=== PATIENT | male | born 1960 | race Caucasian/White ===

== ENCOUNTER 2020-10-08 16:11 | Observation (INO) ==
[2020-10-08] MEDS ORDERED: ASPIRIN CHEW 324 MG PO STA (16:19)
--- NOTE | 2020-10-08 16:30 | Emergency Department Note ---
History of Present Illness General Chief Complaint: Cardiac Assessment Stated Complaint: REFERREDBY DOCTOR, HEART/CHEST PAIN Time Seen by Provider: 10/08/20 16:18 History of Present Illness Provider Complaint: shortness of breath Onset (ago): week(s) (1) Severity: moderate Maximum Pain Intensity: 0 Relieved By: + nothing Exacerbated By: + nothing Context: no recent illness, no recent travel or no trauma/injury Associated symptoms: no chest pain, no pain with inspiration, no fever, no cough, no wheezing, no sputum production, no orthopnea, no polydipsia, no paresthesias, no diaphoresis, no nausea/vomiting, no abdominal pain, no sense of impending doom, no chest congestion or no lightheadedness HPI Narrative: Patient sent in by cardiology Dr. Urbina. Patient was sent in for possible CHF exacerbation reporting that he has a low ejection fraction. Patient was recently in the hospital in [place] and left AMA. Patient denies any recent travel or hemoptysis. Home Medications Medication Instructions Recorded Confirmed Type atorvastatin 40 mg tablet 40 mg PO QPM 10/08/20 10/08/20 History carvedilol 6.25 mg tablet 6.25 mg PO BID 10/08/20 10/08/20 History cyclobenzaprine 10 mg tablet 10 mg PO TID PRN 10/08/20 10/08/20 History gabapentin 400 mg capsule 400 mg PO Q6 10/08/20 10/08/20 History hydroxyzine pamoate 25 mg capsule 25 mg PO TID PRN 10/08/20 10/08/20 History lisinopril 20 mg tablet 20 mg PO QAM 10/08/20 10/08/20 History metformin 500 mg tablet,extended 500 mg PO QAM 10/08/20 10/08/20 History release 24 hr nifedipine 60 mg tablet,extended 60 mg PO QAM 10/08/20 10/08/20 History release omeprazole 40 mg capsule,delayed 40 mg PO QAM 10/08/20 10/08/20 History release Allergies Allergy/AdvReac Type Severity Reaction Status Date / Time No Known Allergies Allergy Unverified 10/08/20 17:52 Past Med/Surg History Medical History (Updated 10/08/20 @ 21:23 by Ronan Campbell) Anxiety COPD (chronic obstructive pulmonary disease) Diabetes Frequent PVCs GERD (gastroesophageal reflux disease) HLD (hyperlipidemia) HTN (hypertension) Left ventricular systolic dysfunction Muscle spasm No pertinent family history Peripheral neuropathy Tobacco abuse Unstable angina Surgical History (Updated 10/08/20 @ 16:28 by Ronan Campbell) No pertinent past surgical history Social History Smoking Status: Current every day smoker Hx Alcohol Use: No Hx Substance Use: Yes Last Used Substance: Days (ago) Preferred Language: Nepalese Communication Ability: Effective Tax Expert Required: No Beliefs That Will Affect Care: None Current Living Situation: Alone Feels Safe at Home: Yes Assistive Devices: Glasses Review of Systems A total of 10 systems reviewed and were otherwise negative Physical Exam Vital Signs: Vital Signs - 24 hr 10/08/20 16:13 10/08/20 17:14 10/08/20 17:31 Temperature 36.6 C Temperature Source Temporal Artery Sc an Pulse Rate 71 71 Pulse Rate [Left F pio] 97 H Pulse Rhythm Regular Regular Pulse Rhythm [Left Finger] Regular Pulse Strength Normal Pulse Strength [Le ft Finger] Normal Respiratory Rate 16 18 20 Respiratory Effort / Characteristics Non-Labored Non-Labored Sponta neous Respiratory Depth Normal Normal Respiratory Patter n Regular Regular Blood Pressure 137/80 Blood Pressure [Ri ght Arm] 165/103 H Blood Pressure Renetta n 99 Blood Pressure Renetta n [Right Arm] 123 Blood Pressure Pos ition Sitting Blood Pressure Pos ition [Right Arm] Sitting Pulse Oximetry 97 96 97 Oxygen Delivery Me thod Room Air Room Air Room Air Sepsis Recent Feve r Within 48 Hours No Sepsis New/Unexpla ined Change in Men araseli Status N/A Sepsis Action Take n by Nursing No Action Required 10/08/20 17:46 10/08/20 18:30 10/08/20 19:12 Temperature Temperature Source Pulse Rate Pulse Rate [Left F pio] 75 69 65 Pulse Rhythm Pulse Rhythm [Left Finger] Regular Regular Pulse Strength Pulse Strength [Le ft Finger] Normal Normal Respiratory Rate 20 20 18 Respiratory Effort / Characteristics Non-Labored Sponta neous Non-Labored Sponta neous Respiratory Depth Normal Normal Respiratory Patter n Regular Regular Blood Pressure Blood Pressure [Ri ght Arm] 132/98 134/76 139/75 Blood Pressure Renetta n Blood Pressure Renetta n [Right Arm] 109 95 96 Blood Pressure Pos ition Blood Pressure Pos ition [Right Arm] Sitting Sitting Pulse Oximetry 98 98 98 Oxygen Delivery Me thod Room Air Room Air Room Air Sepsis Recent Feve r Within 48 Hours Sepsis New/Unexpla ined Change in Men araseli Status Sepsis Action Take n by Nursing Physical Exam: Physical Exam GENERAL: He is oriented to person, place, and time. He appears well-developed and well-nourished. He does not appear distressed. HENT: Exam performed. - Head: Normocephalic and atraumatic. - Right Ear: External ear normal. No mastoid tenderness. - Left Ear: External ear normal. No mastoid tenderness. - Mouth/Throat: The oropharynx is clear and moist. No trismus in the jaw. No dental abscesses or uvula swelling. No oropharyngeal exudate or tonsillar abscesses. EYES: Conjunctivae and EOM are normal. Pupils are equal, round, and reactive to light. Right eye exhibits no discharge. Left eye exhibits no discharge. No scleral icterus. NECK: Normal range of motion. Neck supple. No JVD present. No spinous process tenderness present. No carotid bruit present. No rigidity. No tracheal deviation and normal range of motion present. No Brudzinski's sign and no Kernig's sign noted. CV: Normal rate, regular rhythm, normal heart sounds and intact distal pulses. Palpable radial pulses bue. PULM/CHEST: Effort normal and breath sounds normal. No respiratory distress. No stridor. He has no wheezes. He has no rales. - Chest Wall: He exhibits no tenderness. ABD: The abdomen is soft and obese. Bowel sounds are normal. He has no distension. No mass is present. There is no tenderness. There is no rebound, no guarding, no Barrios's sign and no tenderness at McBurney's point. Rovsig negative. MUSC/SKEL: Normal range of motion. There is 1+ pitting edema of the bilateral lower extremities. No tenderness or deformity. LYMPH: No cervical adenopathy. NEURO: He is alert and oriented to person, place, and time. He has normal strength. No cranial nerve deficit or sensory deficit. Coordination and gait normal. GCS eye subscore is 4. GCS verbal subscore is 5. GCS motor subscore is 6. Cerebellar tests wnl. SKIN: Skin is warm and dry. He is not diaphoretic. PSYCH: He has a normal mood and affect. Behavior is normal. Judgment and thought content normal. Course Course 161: The patient was evaluated in room B11. A complete history and physical exam was performed Cardiac monitoring: An order was placed for continuous cardiac monitoring. The monitor shows a rate of 70 with sinus rhythm 1800: Vital signs stable. Labs and imaging within normal limits. [facility] Spoke with Brandi who stated to admit to Dr. Glover. 1915: Case management is now stating that the patient go to [facility]. Discussed case with Dr. Green who will admit the patient to his service. Administered Medications Discontinued Medications Aspirin (Aspirin Chew 324 Mg) 324 mg PO NOW STA Stop: 10/08/20 16:20 Last Admin: 10/08/20 16:44 Dose: 324 mg Documented by: [id number] Hydroxyzine HCl (Hydroxyzine Hcl 25 Mg Tab) 25 mg PO NOW STA Stop: 10/08/20 18:20 Last Admin: 10/08/20 18:29 Dose: 25 mg Documented by: [id number] Medical Decision Making Laboratory Data Result diagrams: 10/08/20 17:05 10/08/20 17:05 Lab Results 10/08/20 10/08/20 10/08/20 Range/Units 17:05 17:05 17:09 WBC 10.59 (4.8-10.8) K/uL RBC 5.55 (4.7-6.1) M/uL Hgb 16.1 (14.0-18.0) g/dL Hct 45.3 (42-52) % MCV 81.6 (80-100) fL MCH 29.0 (25-34) pg MCHC 35.5 (32-36) g/dL RDW Std Deviation 37.6 (36.4-46.3) fL RDW Coeff of Nicky 12.6 (11.5-14.5) % Plt Count 275 (130-400) K/uL MPV 10.0 (7.4-10.4) fL Immature Gran % (Auto) 0.2 % Neut % (Auto) 52.6 % Lymph % (Auto) 37.7 % [place] % (Auto) 7.3 % Eos % (Auto) 1.9 % Baso % (Auto) 0.3 % Neut # (Auto) 5.58 (1.4-6.5) K/uL Lymph # (Auto) 3.99 H (1.2-3.4) K/uL [place] # (Auto) 0.77 H (0.11-0.59) K/uL Eos # (Auto) 0.20 (0-0.5) K/uL Baso # (Auto) 0.03 (0-0.2) K/uL Immature Gran # (Auto) 0.02 (0.00-0.02) K/uL Sodium 135 L (136-145) mmol/L Potassium 4.5 (3.5-5.1) mmol/L Chloride 106 (98-107) mmol/L Carbon Dioxide 23 (21-32) mmol/L Anion Gap 7.0 (3-11) BUN 35 H (7-18) mg/dl Creatinine 1.21 (0.6-1.4) mg/dl Est Cr Clr Drug Dosing 89.8 ml/min Est GFR ( Amer) 76.0 ml/min Est GFR (Non-Af Amer) 65.6 ml/min BUN/Creatinine Ratio 28.7 H (10-20) Glucose 108 H (70-99) mg/dl Calcium 9.2 (8.5-10.1) mg/dl Troponin I < 0.015 (0-0.045) ng/ml NT-Pro-B Natriuret Pep 159 (0-900) pg/ml Lipase 126 (73-393) U/L COVID-19 Eval Order Covid19 at [facility] SARS-CoV-2 (PCR) (Negative) 10/08/20 Range/Units 17:09 WBC (4.8-10.8) K/uL RBC (4.7-6.1) M/uL Hgb (14.0-18.0) g/dL Hct (42-52) % MCV (80-100) fL MCH (25-34) pg MCHC (32-36) g/dL RDW Std Deviation (36.4-46.3) fL RDW Coeff of Nicky (11.5-14.5) % Plt Count (130-400) K/uL MPV (7.4-10.4) fL Immature Gran % (Auto) % Neut % (Auto) % Lymph % (Auto) % [place] % (Auto) % Eos % (Auto) % Baso % (Auto) % Neut # (Auto) (1.4-6.5) K/uL Lymph # (Auto) (1.2-3.4) K/uL [place] # (Auto) (0.11-0.59) K/uL Eos # (Auto) (0-0.5) K/uL Baso # (Auto) (0-0.2) K/uL Immature Gran # (Auto) (0.00-0.02) K/uL Sodium (136-145) mmol/L Potassium (3.5-5.1) mmol/L Chloride (98-107) mmol/L Carbon Dioxide (21-32) mmol/L Anion Gap (3-11) BUN (7-18) mg/dl Creatinine (0.6-1.4) mg/dl Est Cr Clr Drug Dosing ml/min Est GFR ( Amer) ml/min Est GFR (Non-Af Amer) ml/min BUN/Creatinine Ratio (10-20) Glucose (70-99) mg/dl Calcium (8.5-10.1) mg/dl Troponin I (0-0.045) ng/ml NT-Pro-B Natriuret Pep (0-900) pg/ml Lipase (73-393) U/L COVID-19 Eval Order SARS-CoV-2 (PCR) NEGATIVE (Negative) Imaging Data Radiologist's Impression: Chest X-Ray 10/08/20 16:19 XR chest 1V portable HISTORY: Atypical Chest Pain COMPARISON: None. FINDINGS: No focal lung consolidations to suggest pneumonia. No evidence for pulmonary edema. The cardiac silhouette is top normal in size. No pleural fusions. No pneumothorax. IMPRESSION: No acute process. ACT 112: Negative or not required by law. Electronically signed by: Jefferson Quinn M.D. 10/08/2020 5:24 PM ECG Data Interpretation: Sinus rhythm with rate of 69. OK QRS and QTc intervals are within normal limits. No ST elevation or ST depression. [facility] Narrative 1618: The patient was evaluated in room B11. A complete history and physical exam was performed Cardiac monitoring: An order was placed for continuous cardiac monitoring. The monitor shows a rate of 70 with sinus rhythm 1800: Vital signs stable. Labs and imaging within normal limits. Patient will be admitted to the [facility] hospitalist team. Spoke with Brandi who stated to admit to Dr. Glover. 1915: Case management is now stating that the patient go to [facility]. Discussed case with Dr. Green who will admit the patient to his service. Impression & Plan Dyspnea Discharge Plan Visit Data Chief Complaint: Cardiac Assessment Stated Complaint: REFERREDBY DOCTOR, HEART/CHEST PAIN ED Provider: Ronan Campbell Discharge Problem: Dyspnea Patient Disposition: Admitted As Inpatient Discharge Instructions Interventions: ED Discharge Assessment Last Done: 10/08/20 20:25 Discharge Problem: Dyspnea Qualifiers: Dyspnea type: unspecified Qualified Code(s): R06.00 - Dyspnea, unspecified
[2020-10-08 17:17] LABS: Basophils # (auto) 0.03 K/uL (0-0.2); Basophils % (auto) 0.3 %; Eosinophils % (auto) 1.9 %; Hematocrit (blood only) 45.3 % (42-52); Hemoglobin 16.1 g/dL (14.0-18.0); Immature Granulocytes # (auto) 0.02 K/uL (0.00-0.02); Immature Granulocytes % (auto) 0.2 %; Lymphocytes # (auto) 3.99 K/uL (1.2-3.4); Lymphocytes % (auto) 37.7 %; Mean Corpuscular Hgb Conc 35.5 g/dL (32-36); Mean Corpuscular Volume 81.6 fL (80-100); Monocytes # (auto) 0.77 K/uL (0.11-0.59); Monocytes % (auto) 7.3 %; Neutrophils # (auto) 5.58 K/uL (1.4-6.5); Neutrophils % (auto) 52.6 %; Platelet Count 275 K/uL (130-400); RDW Coefficient of Variation 12.6 % (11.5-14.5); RDW Standard Deviation 37.6 fL (36.4-46.3); Red Blood Count 5.55 M/uL (4.7-6.1); White Blood Count 10.59 K/uL (4.8-10.8)
--- NOTE | 2020-10-08 17:26 | XRay Report ---
XR chest 1V portable HISTORY: Atypical Chest Pain COMPARISON: None. FINDINGS: No focal lung consolidations to suggest pneumonia. No evidence for pulmonary edema. The car diac silhouette is top normal in size. No pleural fusions. No pneumothorax. IMPRESSION: No acute process. ACT 112: Negative or not required by law. Electronically signed by: Jefferson Quinn M.D. 10/08/2020 5:24 PM
[2020-10-08 17:46] LABS: BUN Creatinine Ratio 28.7 (10-20); Blood Urea Nitrogen 35 mg/dl (7-18); Calcium 9.2 mg/dl (8.5-10.1); Carbon Dioxide 23 mmol/L (21-32); Chloride 106 mmol/L (98-107); Creatinine Clr Calc Pharmacy 89.8 ml/min; Est GFR (Non-African American) 65.6 ml/min; Glucose 108 mg/dl (70-99); Lipase 126 U/L (73-393); Potassium 4.5 mmol/L (3.5-5.1); Sodium 135 mmol/L (136-145)
[2020-10-08 17:51] LABS: NT Pro B Type Natriuretic Pept 159 pg/ml (0-900); Troponin I < 0.015 ng/ml (0-0.045)
[2020-10-08] MEDS ORDERED: hydrOXYzine HCl 25 MG TAB PO STA (18:19)
--- NOTE | 2020-10-08 19:40 | History & Physical Report ---
Date of Service October 08, 2020 Assessment & Plan (1) Unstable angina: Plan: Unstable angina/CAD/cardiomyopathy with ejection fraction 30%/frequent PVCs- The patient will be admitted to telemetry for serial cardiac enzymes, serial EKG's, cardiac rhythm monitoring and a 2-D echocardiogram with Dopplers. Continue carvedilol 6.25 mg p.o. twice daily, aspirin 81 mg every morning, lisinopril 20 mg p.o. daily, nifedipine XL 60 mg p.o. daily. Nitroglycerin sublingual every 5 minutes as needed chest pain Patient is asymptomatic at this time. If he develops any recurrent symptoms of either chest pain or shortness of breath, he will be started on Nitropaste and heparin infusion at that time Consult his senior payroll specialist Dr. Urbina (2) Cardiomyopathy: Plan: Noted on recent echo from 09/27. Ejection fraction 30%, increased left atrial size, and globally hypokinetic left ventricular wall (3) Anxiety: Plan: Continue hydroxyzine pamoate 50 mg p.o. 3 times daily as needed and Lexapro 10 mg p.o. daily (4) COPD (chronic obstructive pulmonary disease): Plan: Have DuoNebs available to use every 2 hours as needed Likely secondary to tobacco abuse (5) Tobacco abuse: Plan: Cessation counseling (6) Frequent PVCs: Plan: See above (7) Left ventricular systolic dysfunction: Plan: See above (8) Peripheral neuropathy: Plan: Continue gabapentin 40 mg p.o. every 6 hours (9) GERD (gastroesophageal reflux disease): Plan: Continue omeprazole/pantoprazole daily (10) Muscle spasm: Plan: Continue cyclobenzaprine 10 mg p.o. 3 times daily as needed History of Present Illness Chief Complaint: The patient is referred to the emergency department from cardiology Dr. Urbina office due to concerns regarding unstable angina Primary Care Provider: Corine Pavon DO The patient is a 60-year-old male with a past medical history including CAD, frequent PVCs, cardiomyopathy with ejection fraction 30%, diabetes mellitus, ongoing tobacco abuse, hypertension, dyslipidemia, COPD, anxiety, peripheral neuropathy, GERD and muscle spasm. He presents to the emergency department as referral from Dr. Urbina office for unstable angina. He reports that the symptoms initially developed about 1 month ago, and was most recently admitted to [facility] from 09/27-09/28, but left AMA before being seen by cardiology. He was seen in the outpatient office of Dr. Urbina today, who referred the patient to the ED for further work-up. The patient reports that his symptoms are substernal chest discomfort radiating to his left arm, accompanied by dyspnea on exertion, with progressively less activity. He cannot walk up a flight of stairs without severe shortness of breath. He denies any recent weight change or fluid retention. He reports that he did have a cardiac catheterization by Dr. Pacheco in [place] years ago, and had at least 1 artery that had 80% blockage and another with 40%. He did not have cardiology follow-up until today. Allergies Allergy/AdvReac Type Severity Reaction Status Date / Time No Known Allergies Allergy Unverified 10/08/20 17:52 Home Medications Medication Instructions Recorded Confirmed Type atorvastatin 40 mg tablet 40 mg PO QPM 10/08/20 10/08/20 History carvedilol 6.25 mg tablet 6.25 mg PO BID 10/08/20 10/08/20 History cyclobenzaprine 10 mg tablet 10 mg PO TID PRN 10/08/20 10/08/20 History gabapentin 400 mg capsule 400 mg PO Q6 10/08/20 10/08/20 History hydroxyzine pamoate 25 mg capsule 25 mg PO TID PRN 10/08/20 10/08/20 History lisinopril 20 mg tablet 20 mg PO QAM 10/08/20 10/08/20 History metformin 500 mg tablet,extended 500 mg PO QAM 10/08/20 10/08/20 History release 24 hr nifedipine 60 mg tablet,extended 60 mg PO QAM 10/08/20 10/08/20 History release omeprazole 40 mg capsule,delayed 40 mg PO QAM 10/08/20 10/08/20 History release Past Med/Surg History Medical History (Updated 10/08/20 @ 20:46 by Francesco Day MD) Anxiety COPD (chronic obstructive pulmonary disease) Diabetes Frequent PVCs GERD (gastroesophageal reflux disease) HLD (hyperlipidemia) HTN (hypertension) Left ventricular systolic dysfunction Muscle spasm No pertinent family history Peripheral neuropathy Tobacco abuse Unstable angina Surgical History (Updated 10/08/20 @ 16:28 by Ronan Campbell) No pertinent past surgical history Social History Smoking Status: Current every day smoker Tobacco Cessation Education Requested by Patient: No Hx Alcohol Use: No Hx Substance Use: Yes Last Used Substance: Days (ago) Preferred Language: Faroese Communication Ability: Effective Director Of Recreation Therapy Required: No Beliefs That Will Affect Care: None Current Living Situation: Alone Other Information That Helps Us Care for You: No Feels Safe at Home: Yes Safety Concerns: Feels Safe At This Time Assistive Devices: Glasses Review of Systems Review of Systems: The patient denies cough, lower extremity swelling, sore throat, fevers, chills, sweats, weight change, nausea, vomiting, diarrhea , constipation, abdominal pain, pelvic pain, blood in urine or stool, dysuria, urinary frequency or urgency, lightheadedness, dizziness, headache, memory loss, loss of consciousness, rash, abnormal bruising or bleeding, imbalance, focal or generalized weakness, numbness or tingling in arms or legs, generalized arthralgias or myalgias, back or neck pain, or night sweats. The review of systems is otherwise negative other than for that already noted above, and at least 10 systems have been reviewed. Physical Exam Physical Exam: The patient is awake, alert and oriented 3, well developed and well nourished, normocephalic and atraumatic, lying in bed and in no acute distress. HEENT--PERRL, EOMI, mucous membranes and oropharynx normal. Neck--supple. No JVD. No bruits. Thyroid normal, trachea midline, no adenopathy. Heart--normal S1 and S2. No murmurs, rubs or gallops. Lungs--clear bilaterally, no respiratory distress, no accessory muscle use. Abdomen--normal bowel sounds and soft. Nontender. Nondistended. Morbidly obese Extremities--no cyanosis or clubbing. No edema. Dermatologic--normal skin turgor, normal color, no abnormal lymph nodes, no rash. Neurologic--cranial nerves II through XII grossly intact. Rheumatologic--normal range of motion. Psychiatric--normal affect. Results & Data Results & Data ([facility]) Vital Signs (Past 12 Hours) Vital Signs Temp Pulse Pulse Resp BP BP Pulse Ox 10/08/20 19:12 65 18 139/75 98 10/08/20 18:30 69 20 134/76 98 10/08/20 17:46 75 20 132/98 98 10/08/20 17:31 97 H 20 165/103 H 97 10/08/20 17:14 71 18 96 10/08/20 16:13 97.9 F 71 16 137/80 97 Laboratory Results Laboratory Results WBC 10.59 K/uL (4.8-10.8) 10/08/20 17:05 RBC 5.55 M/uL (4.7-6.1) 10/08/20 17:05 Hgb 16.1 g/dL (14.0-18.0) 10/08/20 17:05 Hct 45.3 % (42-52) 10/08/20 17:05 MCV 81.6 fL (80-100) 10/08/20 17:05 MCH 29.0 pg (25-34) 10/08/20 17:05 MCHC 35.5 g/dL (32-36) 10/08/20 17:05 RDW Std Deviation 37.6 fL (36.4-46.3) 10/08/20 17:05 RDW Coeff of Nicky 12.6 % (11.5-14.5) 10/08/20 17:05 Plt Count 275 K/uL (130-400) 10/08/20 17:05 MPV 10.0 fL (7.4-10.4) 10/08/20 17:05 Immature Gran % (Auto) 0.2 % 10/08/20 17:05 Neut % (Auto) 52.6 % 10/08/20 17:05 Lymph % (Auto) 37.7 % 10/08/20 17:05 [place] % (Auto) 7.3 % 10/08/20 17:05 Eos % (Auto) 1.9 % 10/08/20 17:05 Baso % (Auto) 0.3 % 10/08/20 17:05 Neut # (Auto) 5.58 K/uL (1.4-6.5) 10/08/20 17:05 Lymph # (Auto) 3.99 K/uL (1.2-3.4) H 10/08/20 17:05 [place] # (Auto) 0.77 K/uL (0.11-0.59) H 10/08/20 17:05 Eos # (Auto) 0.20 K/uL (0-0.5) 10/08/20 17:05 Baso # (Auto) 0.03 K/uL (0-0.2) 10/08/20 17:05 Immature Gran # (Auto) 0.02 K/uL (0.00-0.02) 10/08/20 17:05 Sodium 135 mmol/L (136-145) L 10/08/20 17:05 Potassium 4.5 mmol/L (3.5-5.1) 10/08/20 17:05 Chloride 106 mmol/L (98-107) 10/08/20 17:05 Carbon Dioxide 23 mmol/L (21-32) 10/08/20 17:05 Anion Gap 7.0 (3-11) 10/08/20 17:05 BUN 35 mg/dl (7-18) H 10/08/20 17:05 Creatinine 1.21 mg/dl (0.6-1.4) 10/08/20 17:05 Est Cr Clr Drug Dosing 89.8 ml/min 10/08/20 17:05 Est GFR ( Amer) 76.0 ml/min 10/08/20 17:05 Est GFR (Non-Af Amer) 65.6 ml/min 10/08/20 17:05 BUN/Creatinine Ratio 28.7 (10-20) H 10/08/20 17:05 Glucose 108 mg/dl (70-99) H 10/08/20 17:05 Calcium 9.2 mg/dl (8.5-10.1) 10/08/20 17:05 Troponin I < 0.015 ng/ml (0-0.045) 10/08/20 17:05 NT-Pro-B Natriuret Pep 159 pg/ml (0-900) 10/08/20 17:05 Lipase 126 U/L (73-393) 10/08/20 17:05 COVID-19 Eval Order Covid19 at [facility] 10/08/20 17:09 SARS-CoV-2 (PCR) NEGATIVE (Negative) 10/08/20 17:09 Impressions Chest X-Ray 10/08/20 16:19 XR chest 1V portable HISTORY: Atypical Chest Pain COMPARISON: None. FINDINGS: No focal lung consolidations to suggest pneumonia. No evidence for pulmonary edema. The cardiac silhouette is top normal in size. No pleural fusions. No pneumothorax. IMPRESSION: No acute process. ACT 112: Negative or not required by law. Electronically signed by: Jefferson Quinn M.D. 10/08/2020 5:24 PM ECG Additional Comments: LAYNE LAMBERT ID:[id number] 08-OCT-2020 16:25:16 [facility]- EDSTAT ROUTINE RETRIEVAL Poor data quality, interpretation may be adversely affected Normal sinus rhythm Normal ECG No previous ECGs available 25mm/s 10mm/m V 150Hz 9.0.9 12SL 241 NICOLAS: 10 Unconfirmed Vent. rate 69 BPM CA interval 152 ms QRS duration 90 ms QT/QTc 382/409 ms P-R-T axes 63 35 87 1960 (60 yr) Male 1in Room: Loc:15 Head Teacher:Yolie Olivares Code Status & VTE Plan Code Status Full code VTE Prophylaxis Plan VTE Prophylaxis will be ordered: Yes PG Care Time/CCT Total # of Minutes Spent Total Time Spent with Patient: Total time spent is greater than 50% in coordination of care (as documented) at patient's floor/unit and/or counseling patient: Coding Level of Care Code 46588 Initial Inpt Care Lvl 3 Diagnoses Unstable angina I20.0 Cardiomyopathy I42.9 Anxiety F41.9 COPD (chronic obstructive pulmonary disease) J44.9 Tobacco abuse Z72.0 Frequent PVCs I49.3 Left ventricular systolic dysfunction I51.9 Peripheral neuropathy G62.9 GERD (gastroesophageal reflux disease) K21.9 Muscle spasm M62.838
[2020-10-08] MEDS ORDERED: GLUCOSE 10 TABS/TUBE PO PRN (20:39)
[2020-10-08] MEDS ORDERED: DEXTROSE 50% 50 ML SYRINGE IV PRN (20:39)
[2020-10-08] MEDS ORDERED: CARBOHYDRATES FOR HYPOGLYCEMIA PO PRN (20:39)
[2020-10-08] MEDS ORDERED: GLUCOSE 40% GEL 15 GM TUBE PO PRN (20:39)
[2020-10-08] MEDS ORDERED: ACETAMINOPHEN 325 MG TAB PO PRN (20:39)
[2020-10-08] MEDS ORDERED: hydrOXYzine HCl 25 MG TAB PO PRN (20:39)
[2020-10-08] MEDS ORDERED: NITROGLYCERIN SL 0.4 MG/TAB TAB SL PRN (20:39)
[2020-10-08] MEDS ORDERED: ONDANSETRON INJ 2 MG/ML 2 ML VIAL IV PRN (20:39)
[2020-10-08] MEDS ORDERED: GLUCAGON FOR INJ 1 MG VIAL SQ PRN (20:39)
[2020-10-08] MEDS ORDERED: ATORVASTATIN 40 MG TAB PO SCH (21:00)
[2020-10-08] MEDS ORDERED: CYCLOBENZAPRINE HCL 10 MG TAB PO PRN (21:14)
[2020-10-08] MEDS: carvediloL 6.25 MG TAB PO SCH (21:59)
[2020-10-08] MEDS: lisinopril 20 MG TAB PO SCH (22:01)
[2020-10-08] MEDS: INSULIN ASPART 100 UNITS/ML 3 ML PEN SC SCH (22:05)
[2020-10-08] MEDS: GABAPENTIN 400 MG CAP PO SCH (23:17)
[2020-10-09 05:32] LABS: Basophils # (auto) 0.02 K/uL (0-0.2); Basophils % (auto) 0.2 %; Eosinophils # (auto) 0.23 K/uL (0-0.5); Eosinophils % (auto) 2.8 %; Hematocrit (blood only) 46.5 % (42-52); Hemoglobin 16.1 g/dL (14.0-18.0); Immature Granulocytes # (auto) 0.02 K/uL (0.00-0.02); Immature Granulocytes % (auto) 0.2 %; Lymphocytes # (auto) 3.92 K/uL (1.2-3.4); Lymphocytes % (auto) 47.5 %; Mean Corpuscular Hemoglobin 28.9 pg (25-34); Mean Corpuscular Hgb Conc 34.6 g/dL (32-36); Mean Corpuscular Volume 83.3 fL (80-100); Mean Platelet Volume 10.1 fL (7.4-10.4); Monocytes # (auto) 0.87 K/uL (0.11-0.59); Monocytes % (auto) 10.5 %; Neutrophils # (auto) 3.19 K/uL (1.4-6.5); Neutrophils % (auto) 38.8 %; Platelet Count 261 K/uL (130-400); RDW Coefficient of Variation 12.8 % (11.5-14.5); RDW Standard Deviation 38.8 fL (36.4-46.3); Red Blood Count 5.58 M/uL (4.7-6.1); White Blood Count 8.25 K/uL (4.8-10.8)
[2020-10-09 05:42] LABS: Partial Thromboplastin Time 27.6 Seconds (21.0-31.0); Prothrombin Time 10.5 Seconds (9.0-12.0)
[2020-10-09 06:01] LABS: Alanine Aminotransferase 41 U/L (12-78); Albumin Level 3.7 gm/dl (3.4-5.0); Aspartate Aminotransferase 21 U/L (15-37); BUN Creatinine Ratio 22.4 (10-20); Blood Urea Nitrogen 25 mg/dl (7-18); Carbon Dioxide 28 mmol/L (21-32); Chloride 104 mmol/L (98-107); Creatinine Clr Calc Pharmacy 96.2 ml/min; Est GFR (African American) 82.6 ml/min; Est GFR (Non-African American) 71.3 ml/min; Glucose 120 mg/dl (70-99); Potassium 4.2 mmol/L (3.5-5.1); Sodium 135 mmol/L (136-145)
[2020-10-09 06:05] LABS: Alkaline Phosphatase 96 U/L (45-117); Bilirubin,Total 0.6 mg/dl (0.2-1); Globulin 3.7 gm/dl (2.5-4.0); Total Protein 7.4 gm/dl (6.4-8.2); Troponin I < 0.015 ng/ml (0-0.045)
[2020-10-09] MEDS: GABAPENTIN 400 MG CAP PO SCH ×3 (06:31→18:51)
[2020-10-09] MEDS ORDERED: DICLOFENAC SOD 1% GEL 100 GM TUBE EXT PRN (07:20)
[2020-10-09 07:55] LABS: Estimated Average Glucose 169 mg/dl; Hemoglobin A1C 7.5 % (4.5-5.6)
[2020-10-09] MEDS ORDERED: DICLOFENAC SOD 1% GEL 100 GM TUBE EXT SCH (08:00)
--- NOTE | 2020-10-09 08:05 | Electrocardiogram Report ---
Test Reason : Blood Pressure : / mmHG Vent. Rate : 069 BPM Atrial Rate : 069 BPM P-R Int : 152 ms QRS Dur : 090 ms QT Int : 382 ms P-R-T Axes : 063 035 087 degrees QTc Int : 409 ms Poor data quality, interpretation may be adversely affected Normal sinus rhythm Normal ECG No previous ECGs available Confirmed by Gordon Blanchard ([id number]) on 10/09/2020 8:05:04 AM Referred By: REFERRED SELF Confirmed By:Gordon Blanchard
[2020-10-09] MEDS: INSULIN ASPART 100 UNITS/ML 3 ML PEN SC SCH ×3 (08:40→16:53)
[2020-10-09] MEDS: lisinopril 20 MG TAB PO SCH (08:42)
[2020-10-09] MEDS: carvediloL 6.25 MG TAB PO SCH ×2 (08:43→08:49)
[2020-10-09] MEDS ORDERED: PANTOprazole 40 MG TAB PO SCH (09:00)
[2020-10-09] MEDS ORDERED: NIFEdipine EXTENDED REL 30 MG TABCR PO SCH (09:00)
[2020-10-09] MEDS ORDERED: NICOTINE 14 MG/24 HR PATCH TD SCH (09:00)
--- NOTE | 2020-10-09 09:01 | Electrocardiogram Report ---
Test Reason : Blood Pressure : / mmHG Vent. Rate : 061 BPM Atrial Rate : 061 BPM P-R Int : 162 ms QRS Dur : 084 ms QT Int : 420 ms P-R-T Axes : 073 016 055 degrees QTc Int : 422 ms Poor data quality, interpretation may be adversely affected Normal sinus rhythm Normal ECG When compared with ECG of 08-OCT-2020 16:25, No significant change was found Confirmed by Gordon Blanchard ([id number]) on 10/09/2020 9:01:24 AM Referred By: REFERRED SELF Confirmed By:Gordon Blanchard
--- NOTE | 2020-10-09 11:22 | Cardiology Consultation ---
Date of Consultation October 09, 2020 Assessment & Plan (1) Unstable angina: Risk, benefits, alternatives to cardiac catheterization discussed. Patient agreeable. Unfortunately, he consumed an a.m. meal which would delay his procedure approximately 6 hours. Plan left heart catheterization with coronary angiography at 2 PM. (2) Cardiomyopathy: Ejection fraction reportedly 30% per study performed at [facility]. Reports/details unavailable at this time. Repeat echocardiogram pending. Class II functional capacity with orthopnea noted. Plan addition of diuretic therapy post cardiac catheterization. NT proBNP is low, however, this may be falsely reduce in the setting of obesity. (3) Frequent PVCs: Continue carvedilol. (4) HTN (hypertension): Controlled. Continue current medications. (5) Tobacco abuse: Smoking cessation advised. History of Present Illness Reason for Consultation: Unstable angina Requesting Physician: Dr. Marsh Attending Physician: Jeremias Marsh History of Present Illness 60-year-old patient evaluated in the cardiology clinic 10/08/2020. He was referred to the ER due to symptoms of unstable angina. Patient describes dyspnea on exertion with associated chest discomfort for more than 6 weeks. Describes a heaviness and tightness that can last up to 15 minute s after resting. Denies palpitations, lightheadedness, dizziness, syncope, or near syncope. Hospitalized at [facility] on September 28. Echocardiogram report suggested ejection fraction of 30%. Patient left AGAINST MEDICAL ADVICE. He is currently resting comfortably. No chest discomfort at rest. Consumed his a.m. meal which will unfortunately delay his procedure. Troponins are negative. ECG on admission without ischemic changes. 2D transthoracic echocardiogram pending. Patient reports family history of coronary disease. Father undergoing coronary artery bypass grafting in his 50s. Allergies Allergy/AdvReac Type Severity Reaction Status Date / Time No Known Allergies Allergy Unverified 10/08/20 17:52 Home Medications Medication Instructions Recorded Confirmed Type atorvastatin 40 mg tablet 40 mg PO QPM 10/08/20 10/08/20 History carvedilol 6.25 mg tablet 6.25 mg PO BID 10/08/20 10/08/20 History cyclobenzaprine 10 mg tablet 10 mg PO TID PRN 10/08/20 10/08/20 History gabapentin 400 mg capsule 400 mg PO Q6 10/08/20 10/08/20 History hydroxyzine pamoate 25 mg capsule 25 mg PO TID PRN 10/08/20 10/08/20 History lisinopril 20 mg tablet 20 mg PO QAM 10/08/20 10/08/20 History metformin 500 mg tablet,extended 500 mg PO QAM 10/08/20 10/08/20 History release 24 hr nifedipine 60 mg tablet,extended 60 mg PO QAM 10/08/20 10/08/20 History release omeprazole 40 mg capsule,delayed 40 mg PO QAM 10/08/20 10/08/20 History release Patient History Medical History Anxiety COPD (chronic obstructive pulmonary disease) Diabetes Frequent PVCs GERD (gastroesophageal reflux disease) HLD (hyperlipidemia) HTN (hypertension) Left ventricular systolic dysfunction Muscle spasm No pertinent family history Peripheral neuropathy Tobacco abuse Unstable angina Surgical History No pertinent past surgical history Social History Smoking Status: Current every day smoker Hx Alcohol Use: No Hx Substance Use: Yes Last Used Substance: Days (ago) Preferred Language: Yi Communication Ability: Effective Weather Observer Required: No Beliefs That Will Affect Care: None Current Living Situation: Alone Feels Safe at Home: Yes Assistive Devices: None Review of Systems Review of Systems: All systems reviewed & are unremarkable except as noted in Subjective Physical Exam Constitutional: well developed, well nourished and + obese; no acute distress Respiratory: normal respiratory effort; no respiratory distress and no labored breathing Auscultation: no diminished lung sounds, no crackles, no rales and no rhonchi Cardiovascular: Rate/Rhythm: regular rate and regular rhythm; not tachycardic Heart Sounds: normal S1 and normal S2; no murmur Gastrointestinal (Abdomen): Inspection/Auscultation: abdomen normal to inspection and normal bowel sounds; abdomen not distended Percussion/Palpation: abdomen soft; abdomen nontender, no guarding and abdomen not rigid Neurologic: CN's II-XI intact bilaterally and moves all extremities; no focal motor deficits Motor/Sensory: no tremor and normal movement Psychiatric: A+Ox3, euthymic affect Results & Data ([facility]) Vital Signs (Past 12 Hours) Vital Signs Temp Pulse Resp BP Pulse Ox 10/09/20 08:35 36.8 C 53 L 14 133/76 96 10/09/20 06:32 36.7 C 59 L 17 158/99 H 99 10/09/20 03:11 36.7 C 57 L 18 131/87 97
--- NOTE | 2020-10-09 13:24 | Post Anesthesia Assessment ---
Date of Service October 09, 2020 Post Sedation Assessment Vital Signs Temp Pulse Pulse Resp BP BP Pulse Ox 10/09/20 13:20 62 20 146/80 H 97 10/09/20 11:54 36.6 C 10/09/20 10:46 58 L 15 136/80 98 10/09/20 08:37 54 L 14 133/76 97 10/09/20 08:35 36.8 C 53 L 14 133/76 96 10/09/20 06:32 36.7 C 59 L 17 158/99 H 99 10/09/20 03:11 36.7 C 57 L 18 131/87 97 10/08/20 22:48 36.7 C 56 L 16 112/57 L 93 10/08/20 21:58 56 L 14 144/82 H 97 10/08/20 20:20 69 18 153/86 H 98 10/08/20 20:05 36.5 C 65 20 130/83 97 10/08/20 19:12 65 18 139/75 98 10/08/20 18:30 69 20 134/76 98 10/08/20 17:46 75 20 132/98 98 10/08/20 17:31 97 H 20 165/103 H 97 10/08/20 17:14 71 18 96 10/08/20 16:13 36.6 C 71 16 137/80 97 Recovery Score Respiration: Deep Breath/Cough Circulation: +/-20% PreAnes Value Oxygen Saturation: > 92% On Room Air Discharge Sedation Level of Care: Phase I Post Sedation Plan On clinical assessment, the patient appears to have tolerated the sedation without complications. Patient is recovering as anticipated. Patient will continue to be monitored by nursing and may be discharged when sedation discharge criteria are met per below protocol. Upon Completions of procedure up to 15 minutes continue every 5 minute vital signs and the P.A.R. score; then discharge to a Phase I or Fast Track to Phase II per the following guidelines: * Discharge Patient to appropriate Phase II area if PAR is 8 or greater or return to pre- procedure baseline. The post - procedure orders will be as directed. * If PAR score is less than 8 or not return to pre-procedure baseline then patient will follow Phase I monitoring till PAR is reached for Phase II. The Phase I may be done in procedure room or may call to secure a Phase I area. * If naloxone or flumazenil are used for reversal, hold in Phase I for continued monitoring from when last reversal dose was given for a minimum of 60 minutes or longer pending the nurse and/or physician discretion of patient condition before discharge to Phase II. Please call the Sedation Physician to re-evaluate and complete post-note for discharge to Phase II area. Do NOT discharge from procedure sedation or Phase 1 until post- sedation evaluation note is complete by procedure /sedation MD Sedation Discharge Instructions to be given to the patient at discharge to home.
--- NOTE | 2020-10-09 13:24 | Pre Anesthesia Assessment ---
Date of Service October 09, 2020 Pre Sedation Assessment Vital Signs Temp Pulse Pulse Resp BP BP Pulse Ox 10/09/20 13:20 62 20 146/80 H 97 10/09/20 11:54 36.6 C 10/09/20 10:46 58 L 15 136/80 98 10/09/20 08:37 54 L 14 133/76 97 10/09/20 08:35 36.8 C 53 L 14 133/76 96 10/09/20 06:32 36.7 C 59 L 17 158/99 H 99 10/09/20 03:11 36.7 C 57 L 18 131/87 97 10/08/20 22:48 36.7 C 56 L 16 112/57 L 93 10/08/20 21:58 56 L 14 144/82 H 97 10/08/20 20:20 69 18 153/86 H 98 10/08/20 20:05 36.5 C 65 20 130/83 97 10/08/20 19:12 65 18 139/75 98 10/08/20 18:30 69 20 134/76 98 10/08/20 17:46 75 20 132/98 98 10/08/20 17:31 97 H 20 165/103 H 97 10/08/20 17:14 71 18 96 10/08/20 16:13 36.6 C 71 16 137/80 97 Cardiovascular + regular rate and + regular rhythm + S1 normal and + S2 normal; no murmur + femoral pulses present and + radial pulses present no edema Respiratory no respiratory distress and no labored breathing + clear to auscultation bilaterally; no crackles, no rales, no rhonchi and no wheezes Pre-Sedation Airway Assessment Smoking Status: Current every day smoker Hx Sleep Apnea: No Short, Thick Neck: Yes Thyromental Distance: > or= 3.5 Finger Breadths Oral Cavity: + WNL Mallampati Class: III ASA: ASA3 NPO Status Date of Last Intake of Fluids: 10/09/20 Time of Last Intake of Fluids: : Date of Last Intake of Solid Food: 10/09/20 Time of Last Intake of Solid Foods: :30 Procedure Planning Contraindications for Sedation: none Current Medications Reviewed: Yes Notes The planned sedation has been discussed with the patient. Informed Consent was obtained. I have identified the patient, determined the appropriateness of sedation and have assessed the patient immediately prior to the procedure. All medicine(s) and interventions are by my order.
[2020-10-09] MEDS ORDERED: MIDAZOLAM HCL 1 MG/ML 2ML VIAL ONE (13:35)
[2020-10-09] MEDS ORDERED: HEPARIN (PORCINE) 1000 UNIT/ML 10 ML (CATH LAB USE ONLY) ONE (13:36)
[2020-10-09] MEDS ORDERED: NITROGLYCERIN/D5W 100MCG/ML 20ML SYR ONE (13:36)
[2020-10-09] MEDS ORDERED: niCARdipine HCL INJ 2.5 MG/ML 10 ML AMP ONE (13:36)
[2020-10-09] MEDS ORDERED: fentaNYL citrate 100 MCG/2 ML VIAL ONE (13:36)
--- NOTE | 2020-10-09 14:40 | Cardiac Catheterization ---
Cardiac Cath Procedure Full Procedure Date October 09, 2020 Pre-Procedure Diagnosis Pre-Procedure Diagnosis: Angina AUC Score AUC Score: 8 Post-Procedure Diagnosis Post-Procedure Diagnosis: Severe CAD and Normal Intracardiac Pressures Procedure(s) Performed Procedure(s) Performed: Coronary Angiography and Left Heart Cath [employer] Making Machine Operator Gurmeet Boss DO Reservations And Ticketing Agent(s) Showers RN Estimated Blood Loss Estimated Blood Loss: 5cc Medication(s) Medication(s): Fentanyl, Heparin, Lidocaine 1%, Nicardipine, Nitroglycerin and Versed Summary of Findings Right dominant coronary system. Left main is a large vessel which trifurcates into left anterior descending, ramus intermedius, and left circumflex. There is a 70% distal stenosis which appears hazy and caudal views. The left anterior descending artery is a large type III vessel which wraps around left ventricular apex. Gives rise to 3 diagonal branch vessels. 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 There is a 30% tubular mid stenosis followed by diffuse irregularities involving the apical LAD. The diagonal branch vessels are small to moderate caliber. The first diagonal branch left demonstrates mild to moderate diffuse irregularities with stenosis ranging up to 30%. The second diagonal branch vessel is a small to moderate caliber vessel, originates in the region of the LAD stenosis. The ostium is not well visualized, mild luminal irregularities are visualized. The third diagonal branch vessel is of moderate caliber demonstrating mild, 70% ostial stenosis otherwise mild luminal irregularities. The left circumflex is a large nondominant vessel. The proximal segment is diffusely disease with stenosis ranging up to 40%. Circumflex is completely occluded in its mid segment distal to the origin of first large obtuse marginal branch vessel. The first obtuse marginal branch vessel is diffusely diseased proximally with stenosis ranging up to 30%. It is totally occluded in its mid segment and reconstitutes distally via bridging and left to left collaterals. The distal circumflex can be seen filling via right to left collaterals. There is a poorly visualized moderate caliber posterior lateral branch free of significant obstructive disease. The ramus intermedius is a moderate caliber vessel with a 10 to 20% proximal stenosis otherwise mild luminal irregularities noted. The right coronary artery is a moderate caliber dominant vessel giving rise to acute marginal branch vessel and right posterior descending artery. The proximal right coronary artery demonstrates severe 88-90% stenosis followed by poststenotic aneurysm. The remainder of the vessel demonstrates moderate to sev ere diffuse disease involving the proximal, mid, and distal segments with stenosis ranging up to 80%. The posterior descending artery is a moderate caliber vessel. The RPDA demonstrates mild luminal irregularities with stenosis ranging from 10-20%. Hemodynamics Rest Ao:: 105/66/83 Final Ao: 126/76/96 LV: 97/1/4 Recommendations Recommendations: CABG Radiation Exposure (mGy) 1410 Contrast (mls) 50 Fluids (cc crystalloids) Fluids (cc crystalloids): 80 Nss Drains Drains: N/a Procedural Complication(s) None Disposition PCU I attest to the content of the Intraoperative Record and any orders documented therein. Any exceptions are noted below. ACC Data: French Comber Cardiac Status Clinical evaluation leading to the procedure CAD Presenation: Unstable angina Anginal Classification: CCS III Heart Failure: NYHA Class: CCS III Cardiogenic Shock within 24 Hours: No Cardiac Arrest within 24 Hours: No Imaging Studies Past 6 Months: Yes Stress Studies Past 6 Months: No Cardiac CTA: No Coronary Anatomy Left Main (% Stenosis): Distal (70%) LAD (% Stenosis): Proximal (80%) Circumflex (% Stenosis): Mid (100%) OM1 (% Stenosis): Mid (99%) RCA (% Stenosis): Proximal (80-90%) Diagnostic Physicians Name: Gurmeet Boss DO Closure Device Percutaneous Entry Location: Radial Closure Device: Radial Band Recommendations: CABG Intraprocedure Events Significant Disection: No Perforation: No
[2020-10-09] MEDS ORDERED: NITROGLYCERIN SL 0.4 MG/TAB TAB SL PRN (14:56)
[2020-10-09] MEDS ORDERED: ASPIRIN 81 MG ECTAB PO STA (15:26)
[2020-10-09] MEDS ORDERED: ALPRAZolam 0.5 MG TABLET PO ONE (16:05)
[2020-10-09] MEDS ORDERED: HEPARIN SODIUM/DEXTROSE 25,000 UNITS/500 ML BAG IV SCH (18:00)
--- NOTE | 2020-10-09 18:02 | Discharge Summary ---
Date of Service date of admission - October 08, 2020 date of discharge - October 09, 2020 Admission HPI Per Admitting Provider The patient is a 60-year-old male with a past medical history including CAD, frequent PVCs, cardiomyopathy with ejection fraction 30%, diabetes mellitus, ongoing tobacco abuse, hypertension, dyslipidemia, COPD, anxiety, peripheral neuropathy, GERD and muscle spasm. He presents to the emergency department as referral from Dr. Urbina office for unstable angina. He reports that the symptoms initially developed about 1 month ago, and was most recently admitted to [facility] from 09/27-09/28, but left AMA before being seen by cardiology. He was seen in the outpatient office of Dr. Urbina today, who referred the patient to the ED for further work-up. The patient reports that his symptoms are substernal chest discomfort radiating to his left arm, accompanied by dyspnea on exertion, with progressively less activity. He cannot walk up a flight of stairs without severe shortness of breath. He denies any recent weight change or fluid retention. He reports that he did have a cardiac catheterization by Dr. Pacheco in [place] years ago, and had at least 1 artery that had 80% blockage and another with 40%. He did not have cardiology follow-up unt nh today. Principal Diagnosis 1. unstable angina 2. severe triple-vessel CAD - transfer to [facility] for consideration of CABG Discharge Exam Gen: NAD, anxious mouth: MMM Heart: RRR, s1 s2, no murmur lungs: CTA b/l abd: soft, NT, ND, BS+ ext: no edema, pulses including radial artery pulse on right 2+ skin: no hematoma over right wrist Discharge Data Allergies Allergy/AdvReac Type Severity Reaction Status Date / Time No Known Allergies Allergy Unverified 10/08/20 17:52 Consultations [facility] - Gurmeet Boss DO Procedures Performed Operation Date: 10/09/20 14:00 Actual Procedures p Cath, Left with Cors and Vent - Gurmeet Boss DO s Cineradiography w/Routine Exam - Gurmeet Boss DO Summary of Findings - Right dominant coronary system. Left main is a large vessel which trifurcates into left anterior descending, ramus intermedius, and left circumflex. There is a 70% distal stenosis which appears hazy and caudal views. The left anterior descending artery is a large type III vessel which wraps around left ventricular apex. Gives rise to 3 diagonal branch vessels. 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 There is a 30% tubular mid stenosis followed by diffuse irregularities involving the apical L AD. The diagonal branch vessels are small to moderate caliber. The first diagonal branch left demonstrates mild to moderate diffuse irregularities with stenosis ranging up to 30%. The second diagonal branch vessel is a small to moderate caliber vessel, originates in the region of the LAD stenosis. The ostium is not well visualized, mild luminal irregularities are visualized. The third diagonal branch vessel is of moderate caliber demonstrating mild, 70% ostial stenosis otherwise mild luminal irregularities. The left circumflex is a large nondominant vessel. The proximal segment is diffusely disease with stenosis ranging up to 40%. Circumflex is completely occluded in its mid segment distal to the origin of first large obtuse marginal branch vessel. The first obtuse marginal branch vessel is diffusely diseased proximally with stenosis ranging up to 30%. It is totally occluded in its mid segment and reconstitutes distally via bridging and left to left collaterals. The distal circumflex can be seen filling via right to left collaterals. There is a poorly visualized moderate caliber posterior lateral branch free of significant obstructive disease. The ramus intermedius is a moderate caliber vessel with a 10 to 20% proximal stenosis otherwise mild luminal irregularities noted. The right coronary artery is a moderate caliber dominant vessel giving rise to acute marginal branch vessel and right posterior descending artery. The proximal right coronary artery demonstrates severe 88-90% stenosis followed by poststenotic aneurysm. The remainder of the vessel demonstrates moderate to severe diffuse disease involving the proximal, mid, and distal segments with stenosis ranging up to 80%. The posterior descending artery is a moderate caliber vessel. The RPDA demonstrates mild luminal irregularities with stenosis ranging from 10-20%. Hemodynamics Rest Ao:: 105/66/83 Final Ao: 126/76/96 LV: 97/1/4 Ordered Studies 10/09/20 13:29 Cath Imgs for PACS use only Stat Echocardiogram - * EF 40-45% * large sized septal, inferior, posterior, and lateral wall motion abnormalities with hypokinesis to akinesis of these segments * grade 1 diastolic dysfunction * aortic valve sclerosis without aortic valve stenosis Hospital Course (1) CAD (coronary artery disease): The patient was treated for unstable angina given his progressive ischemic symptoms with minimal activity. Echo was consistent with a severe ischemic cardiomyopathy. While he did not have an acute [place] (troponins were negative during his brief stay) [id number] his cardiac catheterization, performed by Dr Gurmeet Boss with [facility], showed severe triple-vessel CAD as well as severe left main disease as noted above. He was maintained on heparin infusion post-catheterization, aspirin, high- intensity statin, carvedilol, and lisinopril. Dr Boss contacted [facility], and the cardiology service of Dr Elian Arellano graciously accepted Mr Mcmillan in transfer for consideration of CABG. (2) Unstable angina: see #1 above (3) Cardiomyopathy: Ischemic. EF 40-45%. Was compensated on examination during this brief stay. He will continue carvedilol and lisinopril upon transfer to [facility]. (4) Anxiety: Continue hydroxyzine 50 mg p.o. 3 times daily as needed and Lexapro 10 mg p.o. daily. (5) COPD (chronic obstructive pulmonary disease): No exacerbation while here. (6) Tobacco abuse: Cessation counseling provided. (7) Frequent PVCs: (8) Peripheral neuropathy: Continue gabapentin 400 mg p.o. every 6 hours as previous. (9) GERD (gastroesophageal reflux disease): Continue PPI Total Time Total Time Spent Total Time Spent (In Minutes): 40 Discharge Plan Discharge Items Patient Disposition: Transfer Acute Care Hospital Reason For Visit: EXERTIONAL CHEST PAIN, SHORTNESS OF BREATH Discharge Diagnosis: Severe coronary artery disease Activity: Per Instructions section Non-emergency contact: Primary Care Provider Call non-emergency contact if: you have any medication questions Follow-up/Referrals: Corine Pavon DO [Primary Care Provider] - Diet: Carb Consistent or DM2 and Heart Healthy Addtl Attending Provider Instructions: Mr Mcmillan, You were admitted to the hospital because of progressive shortness of breath and chest tightness/pain. You underwent a heart catheterization by Dr Gurmeet Boss showing severe coronary artery disease (blockages of all major coronary arteries). You are being transferred to [facility] for consideration of open heart surgery/bypass surgery. Please feel better soon and good luck with your surgery! Dr Marsh Pending Studies at Discharge: No Stand-Alone Forms: My [facility] Skilled Items Patient informed of condition?: Yes DNR: No Discharge Level of Care: Other Communicable Disease: No Discharge Prognosis: Stable Lines: Peripheral IV Urinary Catheter: No Medications and DC Order Prescriptions: New nicotine 7 mg/24 hr Patch 24 Hour 14 mg transdermal QAM Qty: 14 RF: 0 aspirin 81 mg Tablet,Delayed Release (Dr/Ec) 81 mg PO QAM Qty: 90 RF: 1 nitroglycerin [Nitrostat] 0.4 mg Tablet, Sublingual 0.4 mg sublingual UD PRN (Reason: chest pain) Qty: 1 RF: 0 Continued carvedilol 6.25 mg tablet 6.25 mg PO BID RF: 0 cyclobenzaprine 10 mg tablet 10 mg PO TID PRN (Reason: Muscle Pain) RF: 0 lisinopril 20 mg tablet 20 mg PO QAM RF: 0 omeprazole 40 mg capsule,delayed release(DR/EC) 40 mg PO QAM RF: 0 nifedipine 60 mg tablet extended release 60 mg PO QAM RF: 0 hydroxyzine pamoate 25 mg capsule 25 mg PO TID PRN (Reason: Anxiety) RF: 0 gabapentin 400 mg capsule 400 mg PO Q6 RF: 0 Changed atorvastatin 40 mg tablet 80 mg PO QPM Qty: 0 RF: 0 Discontinued metformin 500 mg tablet extended release 24 hr 500 mg PO QAM RF: 0 Discharge Orders: Discharge Order (Routine); Ordered 10/09/20 Ordered By: Jeremias Valdovinos/Other Patient Handouts: CAD Admission Data Admit Date/Time: 10/08/20 19:38 Attending Provider: Jeremias Marsh Admit Provider: Francesco Day Primary Care Provider: Corine Pavon Other Providers: Gurmeet Boss Other Interventions: Discharge Summary Assessment (RN) Last Done: 10/09/20 20:15 Coding Level of Care Code 52526 OBS Care - Discharge Diagnoses Unstable angina I20.0 Cardiomyopathy I42.9 Anxiety F41.9 COPD (chronic obstructive pulmonary disease) J44.9 Tobacco abuse Z72.0 Frequent PVCs I49.3 Peripheral neuropathy G62.9 GERD (gastroesophageal reflux disease) K21.9 CAD (coronary artery disease) I25.10
[2020-10-09] MEDS ORDERED: HEPARIN 25000 UNIT/500 ML D5W IV ONE (19:11)
[2020-10-09] MEDS: Heparin IV Adult Wt-Based Low-Dose *NO* Bolus Protocol IV SCH ×2 (19:15→19:43)
[2020-10-09 20:08] LABS: Partial Thromboplastin Time 27.3 Seconds (21.0-31.0)
[2020-10-09] MEDS ORDERED: ATORVASTATIN 40 MG TAB PO SCH (21:00)
[2020-10-10] MEDS ORDERED: ASPIRIN 81 MG ECTAB PO SCH (09:00)
== END 2020-10-09 20:05 | disposition short-term general hospital (02) ==
LOC: ED 16:11 → 1E 16:11 → SUATTDRO 19:38 → 1E 20:25
DX: I49.3 Ventricular premature depolarization; I25.110 Atherosclerotic heart disease of native coronary artery with unstable angina pectoris; I10 Essential (primary) hypertension; Z79.84 Long term (current) use of oral hypoglycemic drugs; E11.42 Type 2 diabetes mellitus with diabetic polyneuropathy; F17.200 Nicotine dependence, unspecified, uncomplicated; Z79.899 Other long term (current) drug therapy; I42.9 Cardiomyopathy, unspecified; E78.5 Hyperlipidemia, unspecified; J44.9 Chronic obstructive pulmonary disease, unspecified; Z20.822 Contact with and (suspected) exposure to COVID-19; K21.9 Gastro-esophageal reflux disease without esophagitis